=== PATIENT | male | born 1935 | race Caucasian/White ===

== ENCOUNTER 2017-09-09 06:54 | Day surgery (SDC) | payer MEDICARE ==
[2017-09-08 10:56] VITALS: BMI 27.8
[~2017-09-09 06:54] MED LIST: FLU VACC TS2017-18 (>65YR) 0.5 ML SYRINGE IM ONE
[2017-09-09 08:22] VITALS: BP 139/79; TEMP 98.2
[2017-09-09 10:16] LABS: CSF Source CSF; Clarity Clear (Clear); Tube # 4
[2017-09-09 10:17] LABS: RBC Count - Manual 0 /cumm (None Seen); WBC/NonHematics Count - Manual 1 /cumm (0-5)
[2017-09-09 10:50] LABS: CSF, Glucose 64 mg/dl (40-70); CSF, Protein 51 mg/dL (15-40)
[2017-09-09 10:51] LABS: Color Of CSF Supernatant COLORLESS (Colorless); Tube # 2; Unspun CSF Color COLORLESS (Colorless)
--- NOTE | 2017-09-09 11:06 | RAD ---
LUMBAR PUNCTURE UNDER FLUOROSCOPY: Date: 09/09/17 HISTORY: Hydrocephalus. Abnormal gait. EXPOSURE: 0.4 minutes. 482.0 mGy*cm^2. FINDINGS: Initial 2 view sheet metal former lumbar spine radiograph demonstrates five lumbar-type vertebral bodies. Vertebra l body height is maintained. No fracture. Osteophyte formation is noted. Successful lumbar puncture under fluoroscopic guidance. Opening pressure was 19 cm of water. Closing pressure was less than 8/9 cm of water. There was no evidence of CSF at the hub of the needle with th e patient in prone position. A total of 30 mL of clear CSF was collected. TECHNIQUE: Consent obtained to perform a fluoroscopic guided lumbar puncture. The patient's back was evaluated. The L4-L5 level was deemed appropriate. Skin was prepped and draped in the sterile fashion. 1% lidoca ine, buffered with sodium bicarbonate, was used for local anesthesia. Under fluoroscopic guidance, a 20 gauge spinal needle was advanced to the CSF space. Opening pressure was determined to be 19 cm of water. A total of 30 mL of clear CSF was collected. Closing pressure was less than 8/9 cm of water. C SF did not flow to the hub of the needle. IMPRESSION: 1. Technically successful lumbar puncture. 2. Opening and closing pressures as detailed above. POS: [facility]
== END 2017-09-09 11:10 | disposition home or self-care (01) ==
LOC: RAD 06:54
PROVIDERS: ATTEND Surgery
DX: G91.9 Hydrocephalus, unspecified (principal); G93.89 Other specified disorders of brain; R26.9 Unspecified abnormalities of gait and mobility; Z88.1 Allergy status to other antibiotic agents
CPT/HCPCS: 62270; 82945; 84157; 87070; 87205; 89051; 97110; 97116; 97139; G8978; G8979; G8980

== ENCOUNTER 2021-01-29 12:13 | Emergency (ER) | payer MEDICARE | END 2021-01-29 13:40 | disposition home or self-care (01) | LOC: ERS 12:13 | DX: J01.00 Acute maxillary sinusitis, unspecified (principal); J02.9 Acute pharyngitis, unspecified; M10.9 Gout, unspecified; E78.5 Hyperlipidemia, unspecified; E78.00 Pure hypercholesterolemia, unspecified; M19.90 Unspecified osteoarthritis, unspecified site | CPT/HCPCS: 99283 ==

== ENCOUNTER 2023-03-14 18:34 | Inpatient (IN) | payer MEDICARE ==
[2023-03-14] MEDS ORDERED: Nitroglycerin 0.4 MG TAB (25 Tab Bottle) SL PRN (19:14)
[2023-03-14 19:54] VITALS: BMI 28.3
[2023-03-14 20:06] LABS: Hematocrit 43.5 % (42.0-52.0); Hemoglobin 14.5 g/dL (14.0-18.0); Platelet Count 241 10x3/uL (130-400)
[2023-03-14 20:28] LABS: Magnesium 1.8 mg/dL (1.6-2.6)
[2023-03-14 20:36] LABS: Troponin I 21.775 ng/mL (< 0.028)
[2023-03-14] MEDS ORDERED: Senokot S 8.6-50 MG TAB PO PRN (20:40)
[2023-03-14] MEDS ORDERED: Bisacodyl 5 MG TAB PO PRN (20:40)
[2023-03-14] MEDS ORDERED: Ondansetron ODT 4 MG TAB PO PRN (20:40)
[2023-03-14] MEDS ORDERED: Acetaminophen 325 MG TAB PO PRN (20:40)
[2023-03-14] MEDS ORDERED: Ondansetron PF 4 MG/2 ML Vial IVP PRN (20:40)
[2023-03-14] MEDS ORDERED: Sodium Chloride 0.9% 1,000 ML IV SCH (20:45)
[2023-03-14] MEDS ORDERED: Magnesium 2 GM/50 ML(in water) 2 GM in Premix Bag 1 BAG IVPB SCH (21:00)
[2023-03-14] MEDS: Heparin 10,000 UNITS/ 10 ML VIAL SLOW IVP SCH (21:37)
[2023-03-14] MEDS: Heparin 25,000 units/D5W 500 ML IVPB SCH (21:42)
[2023-03-14] MEDS: Famotidine 20 MG TAB PO SCH (21:51)
[2023-03-14] MEDS: Atorvastatin Calcium 40 MG TAB PO SCH (21:51)
[2023-03-15 00:01] LABS: Troponin I 22.584 ng/mL (< 0.028)
[2023-03-15 05:40] LABS: #Neutrophils 10.5 thou/uL (1.40-6.50); %Basophils 0.1 % (0.0-1.0); %Eosinophils 0.1 % (0.0-10.0); %Lymphocytes 12.5 % (21.0-51.0); %Monocytes 13.7 % (0.0-10.0); %Neutrophils 72.7 % (42.0-75.0); Hematocrit 43.6 % (42.0-52.0); Hemoglobin 14.2 g/dL (14.0-18.0); Mean Corpuscular HGB CONC 32.6 g/dL (32.0-36.0); Mean Corpuscular Hemoglobin 29.3 pg (27.0-31.0); Mean Corpuscular Volume 89.9 fl (78.0-98.0); Mean Platelet Volume 11.6 fL (7.4-10.4); Platelet Count 261 10x3/uL (130-400); RBC Distribution Width 14.2 % (11.5-14.5); Red Blood Cell (RBC) Count 4.85 mill/uL (4.70-6.10); White Blood Cell (WBC) Count 14.4 10x3/uL (4.8-10.8)
[2023-03-15 06:03] LABS: Hemoglobin A1c 5.4 % (4.0-6.0)
[2023-03-15 06:08] LABS: Anion Gap 14 mmol/L (10-20); BUN (Urea Nitrogen) 13 mg/dL (8.4-25.7); Calc. Creatinine Clearance 84 mL/min (70-130); Calcium 9.4 mg/dL (7.8-10.44); Carbon Dioxide 27 mmol/L (23-31); Cardiac Risk 3.5 (Less than 4.5); Chloride 99 mmol/L (98-107); Cholesterol 156 mg/dl (< 200 Desired); Estimated GFR 85; Glucose 108 mg/dL (83-110); HDL Cholesterol 45 mg/dL (>60 Neg Risk); LDL Cholesterol, Calculated 91 mg/dL; Potassium 3.5 mmol/L (3.5-5.1); Sodium 136 mmol/L (136-145); Triglycerides 101 mg/dL (Less than 150)
[2023-03-15] MEDS: Aspirin 81 mg Enteric Coated Tablet PO SCH (10:07)
[2023-03-15] MEDS: Famotidine 20 MG TAB PO SCH ×2 (10:07→21:16)
[2023-03-15] MEDS: Heparin 10,000 UNITS/ 10 ML VIAL SLOW IVP SCH (13:39)
[2023-03-15] MEDS: Heparin 25,000 units/D5W 500 ML IVPB SCH (16:30)
[2023-03-15] MEDS: Atorvastatin Calcium 40 MG TAB PO SCH (21:16)
[2023-03-15] MEDS: Metoprolol Tartrate 25 MG TAB PO SCH (21:16)
[2023-03-16] MEDS: Aspirin 81 mg Enteric Coated Tablet PO SCH (05:58)
[2023-03-16] MEDS: Metoprolol Tartrate 25 MG TAB PO SCH (05:58)
[2023-03-16] MEDS: Famotidine 20 MG TAB PO SCH ×2 (05:58→21:26)
[2023-03-16] MEDS ORDERED: Lidocaine 1% (PF) 30 ML VIAL ONE (06:09)
[2023-03-16] MEDS ORDERED: Heparin 10,000 UNITS/ 10 ML VIAL ONE (06:09)
[2023-03-16 06:27] LABS: Troponin I 13.225 ng/mL (< 0.028)
[2023-03-16] MEDS ORDERED: Midazolam HCl 2 mg/2 ml Vial ONE (06:45)
[2023-03-16] MEDS ORDERED: fentaNYL 50 mcg/mL 1 mL Vial ONE (06:45)
[2023-03-16] MEDS ORDERED: Nitroglycerin 0.4 MG TAB (25 Tab Bottle) SL PRN (07:34)
[2023-03-16] MEDS ORDERED: Sodium Chloride 0.9% 200 ML IV PRN (07:34)
[2023-03-16] MEDS ORDERED: Acetaminophen/Codeine 30-300mg Tablet PO PRN ×2 (07:34)
[2023-03-16] MEDS ORDERED: Iopamidol 370 76% 100 ML VIAL ONE (09:22)
[2023-03-16] MEDS: Lisinopril 2.5 MG TAB PO SCH ×2 (10:55→21:26)
[2023-03-16] MEDS ORDERED: Carvedilol 3.125 MG TAB PO SCH (17:00)
[2023-03-16 19:46] LABS: Hematocrit 40.2 % (42.0-52.0); Hemoglobin 13.3 g/dL (14.0-18.0); Platelet Count 278 10x3/uL (130-400)
[2023-03-16] MEDS: Atorvastatin Calcium 40 MG TAB PO SCH (21:26)
[2023-03-17] MEDS ORDERED: Clopidogrel Bisulfate 300 MG TAB PO SCH (07:30)
[2023-03-17] MEDS ORDERED: Carvedilol 3.125 MG TAB PO SCH (07:36)
[2023-03-17] MEDS: Famotidine 20 MG TAB PO SCH ×2 (08:50→21:05)
[2023-03-17] MEDS: Aspirin 81 mg Enteric Coated Tablet PO SCH (08:50)
[2023-03-17] MEDS: Lisinopril 2.5 MG TAB PO SCH ×2 (08:50→21:05)
[2023-03-17] MEDS: Carvedilol 6.25 MG TAB PO SCH ×2 (08:50→17:42)
[2023-03-17] MEDS ORDERED: predniSONE 20 MG TAB PO SCH (12:00)
[2023-03-17] MEDS: Atorvastatin Calcium 40 MG TAB PO SCH (21:05)
[2023-03-18] MEDS: Clopidogrel Bisulfate 75 MG TAB PO SCH (10:36)
[2023-03-18] MEDS: Carvedilol 6.25 MG TAB PO SCH ×2 (10:36→16:39)
[2023-03-18] MEDS: Famotidine 20 MG TAB PO SCH ×2 (10:36→20:19)
[2023-03-18] MEDS: Lisinopril 2.5 MG TAB PO SCH ×2 (10:36→20:19)
[2023-03-18] MEDS: Aspirin 81 mg Enteric Coated Tablet PO SCH (10:36)
[2023-03-18 19:10] LABS: Hematocrit 39.9 % (42.0-52.0); Hemoglobin 13.3 g/dL (14.0-18.0); Platelet Count 323 10x3/uL (130-400)
[2023-03-18] MEDS: Atorvastatin Calcium 40 MG TAB PO SCH (20:19)
[2023-03-19] MEDS: Lisinopril 2.5 MG TAB PO SCH ×2 (10:28→20:37)
[2023-03-19] MEDS: Famotidine 20 MG TAB PO SCH ×2 (10:28→20:37)
[2023-03-19] MEDS: Carvedilol 6.25 MG TAB PO SCH ×2 (10:28→17:03)
[2023-03-19] MEDS: Clopidogrel Bisulfate 75 MG TAB PO SCH (10:28)
[2023-03-19] MEDS: Aspirin 81 mg Enteric Coated Tablet PO SCH (10:29)
[2023-03-19] MEDS: Atorvastatin Calcium 40 MG TAB PO SCH (20:37)
[2023-03-20 05:40] LABS: Hematocrit 44.4 % (42.0-52.0); Hemoglobin 14.5 g/dL (14.0-18.0); Mean Corpuscular HGB CONC 32.7 g/dL (32.0-36.0); Mean Corpuscular Hemoglobin 29.1 pg (27.0-31.0); Mean Platelet Volume 10.6 fL (7.4-10.4); Platelet Count 375 10x3/uL (130-400); RBC Distribution Width 13.6 % (11.5-14.5); Red Blood Cell (RBC) Count 4.99 mill/uL (4.70-6.10); White Blood Cell (WBC) Count 13.3 10x3/uL (4.8-10.8)
[2023-03-20 05:59] LABS: Anion Gap 13 mmol/L (10-20); BUN (Urea Nitrogen) 20 mg/dL (8.4-25.7); Calc. Creatinine Clearance 76 mL/min (70-130); Calcium 9.5 mg/dL (7.8-10.44); Carbon Dioxide 25 mmol/L (23-31); Chloride 101 mmol/L (98-107); Estimated GFR 83; Glucose 115 mg/dL (83-110); Potassium 4.6 mmol/L (3.5-5.1); Sodium 134 mmol/L (136-145)
[2023-03-20] MEDS: Clopidogrel Bisulfate 75 MG TAB PO SCH (09:42)
[2023-03-20] MEDS: Lisinopril 2.5 MG TAB PO SCH ×2 (09:42→21:00)
[2023-03-20] MEDS: Carvedilol 6.25 MG TAB PO SCH ×2 (09:43→18:29)
[2023-03-20] MEDS: Aspirin 81 mg Enteric Coated Tablet PO SCH (09:44)
[2023-03-20] MEDS: Famotidine 20 MG TAB PO SCH ×2 (09:50→21:00)
[2023-03-20] MEDS: Atorvastatin Calcium 40 MG TAB PO SCH (21:00)
[2023-03-21] MEDS: Clopidogrel Bisulfate 75 MG TAB PO SCH (09:00)
[2023-03-21] MEDS: Carvedilol 6.25 MG TAB PO SCH ×2 (09:00→17:23)
[2023-03-21] MEDS: Famotidine 20 MG TAB PO SCH ×2 (09:01→20:38)
[2023-03-21] MEDS: Aspirin 81 mg Enteric Coated Tablet PO SCH (09:01)
[2023-03-21] MEDS: Lisinopril 2.5 MG TAB PO SCH ×2 (09:01→20:38)
[2023-03-21] MEDS: Atorvastatin Calcium 40 MG TAB PO SCH (20:38)
[2023-03-22] MEDS: Lisinopril 2.5 MG TAB PO SCH ×2 (09:30→21:11)
[2023-03-22] MEDS: Aspirin 81 mg Enteric Coated Tablet PO SCH (09:30)
[2023-03-22] MEDS: Carvedilol 6.25 MG TAB PO SCH ×2 (09:30→16:48)
[2023-03-22] MEDS: Clopidogrel Bisulfate 75 MG TAB PO SCH (09:30)
[2023-03-22] MEDS: Famotidine 20 MG TAB PO SCH ×2 (09:31→21:11)
[2023-03-22] MEDS ORDERED: Loratadine 10 MG TAB PO PRN (13:42)
[2023-03-22] MEDS: Atorvastatin Calcium 40 MG TAB PO SCH (21:11)
[2023-03-23] MEDS: Clopidogrel Bisulfate 75 MG TAB PO SCH (09:04)
[2023-03-23] MEDS: Aspirin 81 mg Enteric Coated Tablet PO SCH (09:04)
[2023-03-23] MEDS: Famotidine 20 MG TAB PO SCH ×2 (09:04→20:21)
[2023-03-23] MEDS: Lisinopril 2.5 MG TAB PO SCH ×2 (09:04→20:21)
[2023-03-23] MEDS: Carvedilol 6.25 MG TAB PO SCH ×2 (09:04→17:15)
[2023-03-23] MEDS: Atorvastatin Calcium 40 MG TAB PO SCH (20:21)
[2023-03-24 07:40] VITALS: TEMP 97.9
[2023-03-24] MEDS: Clopidogrel Bisulfate 75 MG TAB PO SCH (08:36)
[2023-03-24] MEDS: Lisinopril 2.5 MG TAB PO SCH (08:36)
[2023-03-24] MEDS: Carvedilol 6.25 MG TAB PO SCH (08:36)
[2023-03-24] MEDS: Aspirin 81 mg Enteric Coated Tablet PO SCH (08:36)
[2023-03-24] MEDS: Famotidine 20 MG TAB PO SCH (08:36)
[2023-03-24 12:28] VITALS: BP 123/59
== END 2023-03-24 12:50 | disposition swing bed (61) | DRG 281 ==
LOC: 2NO 18:34
PROVIDERS: ADMIT Internal Medicine Nephrology; ATTEND Family Medicine
PROC: 4A023N7 Measurement of Cardiac Sampling and Pressure, Left Heart, Percutaneous Approach (ICD-10-PCS; principal; 2023-03-16)
PROC: B2111ZZ Fluoroscopy of Multiple Coronary Arteries using Low Osmolar Contrast (ICD-10-PCS; 2023-03-16)
PROC: B2151ZZ Fluoroscopy of Left Heart using Low Osmolar Contrast (ICD-10-PCS; 2023-03-16)
DX: I21.4 Non-ST elevation (NSTEMI) myocardial infarction (principal); G91.2 (Idiopathic) normal pressure hydrocephalus; I42.9 Cardiomyopathy, unspecified; Z20.822 Contact with and (suspected) exposure to COVID-19; R53.81 Other malaise; I25.10 Atherosclerotic heart disease of native coronary artery without angina pectoris; R53.1 Weakness; K21.9 Gastro-esophageal reflux disease without esophagitis; Z90.89 Acquired absence of other organs; Z88.1 Allergy status to other antibiotic agents; Z90.49 Acquired absence of other specified parts of digestive tract; Z79.899 Other long term (current) drug therapy
CPT/HCPCS: 36415; 80048; 80061; 83036; 83735; 83880; 84443; 84484; 85014; 85018; 85025; 85027; 85049; 85652; 85730; 93306; 93458; 97139; 99152; C1769; J1644; J2001; J2250; J3010; J3475; J7512; Q9967